=== PATIENT | female | born 1985 | race Caucasian/White ===

== ENCOUNTER 2019-02-10 16:20 | Emergency (ER) | payer BC, OTHER ==
[~2019-02-10] VITALS: Ht 152.4 cm; Wt 51.0 kg
[2019-02-10 16:22] VITALS: Ht 152.4 cm; Wt 51.0 kg
[2019-02-10] MEDS ORDERED: LACTATED RINGER'S 1,000 ML IV STA (16:47)
[2019-02-10] MEDS ORDERED: KETOROLAC 15 MG INJ IV STA (16:47)
--- NOTE | 2019-02-10 16:58 | ERD ---
ER Documentation Chief Complaint Chief Complaint AP WITH DIARRHEA X 3 DAYS HPI 33-year-old female with no significant prior medical history presents to the ED complaining of a 3-day history of abdominal pain and diarrhea. Symptoms began with several episodes of watery, diarrhea and was followed by moderate, crampy intermittent abdominal pain that have worsened. Diarrhea is watery, nonbloody with some mucus. No nausea or vomiting. No recent travel, ill contacts or spoiled food exposures. No dysuria, polyuria, hematuria, vaginal discharge or flank pain. Denies chest pain, palpitations or shortness of breath. Mild, gene ralized headache but no visual changes, focal weakness or numbness. No neck or back pain. No fevers or chills. ROS All systems reviewed and are negative except as per history of present illness. Medications Home Meds No Active Prescriptions or Reported Meds Allergies Allergies: Coded Allergies: No Known Allergy (Unverified , 02/10/19) PMhx/Soc Medical and Surgical Hx: pt denies Medical Hx, pt denies Surgical Hx Hx Alcohol Use: Yes (social) Hx Substance Use: No Hx Tobacco Use: No Smoking Status: Never smoker Physical Exam Vitals Vital Signs Date Temp Pulse Resp B/P (MAP) Pulse Ox O2 O2 Flow FiO2 Time Delivery Rate 02/10/19 78 18 92/66 (75) 99 Room Air 17:48 02/10/19 98.2 80 18 111/73 99 16:22 (86) Physical Exam Const: No acute distress Head: Atraumatic Eyes: Normal Conjunctiva ENT: Normal External Ears, Nose and Mouth. Neck: Full range of motion. No meningismus. Resp: Clear to auscultation bilaterally Cardio: Regular rate and rhythm, no murmurs Abd: Soft, non tender, non distended. Normal bowel sounds Skin: No petechiae or rashes Back: No midline or flank tenderness Ext: No cyanosis, or edema Neur: Awake and alert Psych: Normal Mood and Affect Result Diagram: 02/10/19 1639 02/10/19 1639 Results 24 hrs Laboratory Tests Test 02/10/19 16:39 02/10/19 17:56 White Blood Count 8.6 10^3/ul Red Blood Count 4.41 10^6/ul Hemoglobin 14.1 g/dl Hematocrit 42.2 % Mean Corpuscular Volume 95.7 fl Mean Corpuscular Hemoglobin 32.0 pg Mean Corpuscular Hemoglobin Concent 33.4 g/dl Red Cell Distribution Width 12.2 % Platelet Count 184 10^3/UL Mean Platelet Volume 12.3 fl Immature Granulocytes % 0.200 % Neutrophils % 66.5 % Lymphocytes % 21.4 % Monocytes % 9.2 % Eosinophils % 1.9 % Basophils % 0.8 % Nucleated Red Blood Cells % 0.0 /100WBC Immature Granulocytes # 0.020 10^3/ul Neutrophils # 5.7 10^3/ul Lymphocytes # 1.8 10^3/ul Monocytes # 0.8 10^3/ul Eosinophils # 0.2 10^3/ul Basophils # 0.1 10^3/ul Nucleated Red Blood Cells # 0.0 10^3/ul Urine Color STRAW Urine Clarity CLEAR Urine pH 6.0 Urine Specific [place] 1.004 Urine Ketones NEGATIVE mg/dL Urine Nitrite NEGATIVE mg/dL Urine Bilirubin NEGATIVE mg/dL Urine Urobilinogen NEGATIVE mg/dL Urine Leukocyte Esterase NEGATIVE Jose C/ul Urine Microscopic RBC 0 /HPF Urine Microscopic WBC 1 /HPF Urine Squamous Epithelial Cells FEW /HPF Urine Bacteria FEW /HPF Urine Hemoglobin 1+ mg/dL Urine Glucose NEGATIVE mg/dL Urine Total Protein NEGATIVE mg/dl Sodium Level 140 mmol/L Potassium Level 3.7 mmol/L Chloride Level 104 mmol/L Carbon Dioxide Level 26 mmol/L Anion Gap 10 Blood Urea Nitrogen 9 mg/dl Creatinine 0.79 mg/dl Est Glomerular Filtrat Rate mL/min > 60 mL/min Glucose Level 84 mg/dl Calcium Level 9.2 mg/dl Total Bilirubin 0.4 mg/dl Direct Bilirubin 0.00 mg/dl Indirect Bilirubin 0.4 mg/dl Aspartate Amino Transf (AST/SGOT) 22 IU/L Alanine Aminotransferase (ALT/SGPT) 12 IU/L Alkaline Phosphatase 56 IU/L Total Protein 7.9 g/dl Albumin 4.4 g/dl Globulin 3.50 g/dl Albumin/Globulin Ratio 1.25 Lipase 69 U/L POC Beta HCG, Qualitative NEGATIVE Current Medications Medications Dose Sig/Yvette Start Time Status Last (Trade) Ordered Route PRN Stop Time Admin Dose Reason Admin Lactated 1,000 ml @ Q1H STAT 02/10/19 DC 02/10/19 Ringer's 1,000 mls/hr IV 16:47 17:22 02/10/19 18:00 Ketorolac 10 mg ONCE STAT 02/10/19 DC 02/10/19 Tromethamine IV 16:47 17:22 (Toradol) 02/10/19 16:54 Belladonna 10 ml ONCE ONCE 02/10/19 DC 02/10/19 Alkaloids/ PO 17:00 17:38 Phenobarbital 02/10/19 17:01 () Procedures/MDM DOCUMENTS REVIEWED: ED nurse, no prior records IMAGING: [ ] ED COURSE: [] REEXAMINATION/REEVALUATION: Time: 18:00. Doing well. Abdomen soft nontender. MEDICAL DECISION MAKIN-year-old female with no significant prior medical history presents to the ED complaining of a 3-day history of abdominal pain and diarrhea. BC to evaluate for leukocytosis, anemia and thrombocytopenia is unremarkable. Chemistry reveals no evidence of renal insufficiency, electrolyte abnormalities or hyper/hypoglycemia. Urinalysis is negative for infection or hematuria. Abdominal exam is essentially benign without significant tenderness, rebound, guarding, signs of peritonitis or other intra-abdominal/intrapelvic process including but not limited to appendicitis, diverticulitis and ovarian pathology, hence CT scan is not indicated. Possible foodborne illness versus viral etiology and bacterial enteritis. Patient treated with intravenous hydration, ketorolac and . Observed in the ED for over 2 hours. Asymptomatic. As the symptoms are ongoing for 4 days and there is mucoid diarrhea patient will be started on a 3-day course of azithromycin. Well- hydrated, tolerating POs and stable for discharge with precautionary instructions and outpatient follow-up as counseled. Counseled patient regarding diagnostic workup, diagnosis and need for followup. Understands to return to ED if symptoms recur, worsen or any other concerns. Departure Diagnosis: Primary Impression: Acute generalized abdominal pain Additional Impression: Diarrhea Diarrhea type: unspecified type Qualified Codes: R19.7 - Diarrhea, unspecified Condition: Serious PAULETTE FELICIANO MD Feb 10, 2019 16:58
[2019-02-10] MEDS ORDERED: BELLADONNA/PHENOBARBITAL 5ML CUP PO ONE (17:00)
[2019-02-10] MEDS ORDERED: AZIT500T3 PO (18:27)
[2019-02-10] MEDS ORDERED: PHEN-547 PO (18:28)
[2019-02-10 19:09] VITALS: BP 92/67; PULSE 71; RESP 21
== END 2019-02-10 19:09 | disposition home or self-care (01) ==
LOC: E/R 16:20
DX: R10.84 Generalized abdominal pain (principal); R19.7 Diarrhea, unspecified
CPT/HCPCS: 36415; 80053; 81001; 81025; 83690; 85025; 96374; 99284; J1885; J7120